=== PATIENT | female | born 1930 | race Caucasian/White ===

== ENCOUNTER → 2018-11-13 | Outpatient (CLI) | payer OTHER ==
[~2018-11-13] MED LIST: ALEVE220 MG PO; CENTRUM SILVER1 EAC4 PO; LIPITOR10 MG PO
== END ==
LOC: M.PC 07:00
DX: M43.26 Fusion of spine, lumbar region (principal); M47.816 Spondylosis without myelopathy or radiculopathy, lumbar region; M51.36 Other intervertebral disc degeneration, lumbar region; M16.0 Bilateral primary osteoarthritis of hip

== ENCOUNTER → 2018-11-20 | Outpatient (CLI) | payer OTHER | END | disposition home or self-care (01) | LOC: M.PC 04:52 | DX: M47.816 Spondylosis without myelopathy or radiculopathy, lumbar region (principal); M51.36 Other intervertebral disc degeneration, lumbar region; G89.29 Other chronic pain; M16.0 Bilateral primary osteoarthritis of hip; E78.5 Hyperlipidemia, unspecified; M19.90 Unspecified osteoarthritis, unspecified site; J43.9 Emphysema, unspecified; Z79.899 Other long term (current) drug therapy; Z98.890 Other specified postprocedural states ==

== ENCOUNTER → 2018-12-04 | Outpatient (CLI) | payer OTHER | LOC: M.PC 05:13 | DX: M47.816 Spondylosis without myelopathy or radiculopathy, lumbar region (principal); M51.36 Other intervertebral disc degeneration, lumbar region; M16.0 Bilateral primary osteoarthritis of hip; M25.551 Pain in right hip; M43.26 Fusion of spine, lumbar region; E78.5 Hyperlipidemia, unspecified; J43.9 Emphysema, unspecified ==